=== PATIENT | male | born 1960 | race Caucasian/White ===

== ENCOUNTER 2017-05-27 08:43 | Emergency (ER) | payer SELFPAY ==
[2017-05-27 08:50] VITALS: BMI 29.5
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
--- NOTE | 2017-05-27 09:39 | CT ---
PROCEDURE: CT HEAD WITHOUT CONTRAST. HISTORY: r/o bleed COMPARISON: None available. TECHNIQUE: Axial computed tomography images were obtained through the head/brain without intravenous contrast. Radiation dose: Total exam DLP = 886 mGy-cm. This CT exam was performed using one or more of the following dose reduction techniques: Automated exposure control, adjustment of the mA and/or kV according to patient size, and/or use of iterative reconstruction technique. FINDINGS: HEMORRHAGE: No intracranial hemorrhage. BRAIN: No mass effect or edema. No atrophy or chronic microvascular ischemic changes. VENTRICLES: Unremarkable. No hydrocephalus. CALVARIUM: Unremarkable. PARANASAL SINUSES: Unremarkable as visualized. No significant inflammatory changes. MASTOID AIR CELLS: Unremarkable as visualized. No inflammatory changes. OTHER FINDINGS: None. IMPRESSION: Normal CT of the Head.
[2017-05-27 10:32] VITALS: BP 128/78; PULSE 78; RESP 19; TEMP 97.7; O2SAT 98
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
== END 2017-05-27 10:32 | disposition home or self-care (01) ==
LOC: H.ER 08:43
DX: S09.90XA Unspecified injury of head, initial encounter (principal); S63.91XA Sprain of unspecified part of right wrist and hand, initial encounter; V19.9XXA Pedal cyclist (driver) (passenger) injured in unspecified traffic accident, initial encounter; Y93.55 Activity, bike riding

== ENCOUNTER 2017-07-16 17:10 | Emergency (ER) | payer MEDICAID ==
[2017-07-16 17:10] VITALS: BMI 29.5
[2017-07-16] MEDS ORDERED: Oxycodone/Acetaminophen 5/325 mg Tab PO STA (20:33)
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
--- NOTE | 2017-07-16 21:27 | ED PDOC ---
- ECG O2 Sat by Pulse Oximetry: 98 Medical Decision Making Medical Decision Making: Case was signed out to keno writer/runner from [employer] [facility] pending CT reports CT cervical spine: FINDINGS: VERTEBRAE: No acute cervical spine fractures visualized. No significant vertebral subluxation seen on the sagittal reformatted images. Normal alignment of the facet joints. DISCS/SPINAL CANAL/ NEURAL FORAMINA: Moderate to severe degenerative disc disease, greatest at the C5-6 and C6-7 levels Degenerative changes at the atlantoaxial joint. SOFT TISSUES: No acute abnormality of the visualized soft tissues is seen. LARYNX: On image 49 of series 102, there is a small amount of debris/fluid in the supraglottic larynx posteriorly, which could represent some aspirated material. LUNG APICES: No pneumothorax seen. IMPRESSION: No acute cervical spine fractures identified. Small amount of debris/fluid in the supraglottic larynx, which could represent some aspirated material. Recommend clinical correlation. CT facial bones: FINDINGS: LIMITATIONS: Mild to moderate streak/motion artifact. BONES/JOINTS: Nondisplaced acute fracture involving the lateral wall of the left maxillary sinus. Nondisplaced acute fracture involving the anterior wall of the left maxillary sinus. This fracture extends to the left infraorbital rim. Acute fracture in of the left orbital floor posteriorly. This is best seen on image 52 of series 601, and it is mildly depressed. No additional acute fractures seen. SOFT TISSUES: Marked left periorbital and supraorbital soft tissue swelling. ORBITS: Small amount of air in the left orbit inferiorly. Intraorbital soft tissues appear grossly intact. No evidence of significant retrobulbar hematoma. SINUSES: Hemorrhage in the left maxillary sinus. There is also mucosal thickening involving the left frontal, left ethmoid , left sphenoid, and left maxillary sinuses. NASOPHARYNX: Nasal septal deviation to the left. IMPRESSION: Acute fractures of the anterior and lateral gandhi of the left maxillary sinus. The anterior wall fracture extends to the left infraorbital rim. Acute fracture of the left orbital floor posteriorly. CT head: FINDINGS: BRAIN: No significant acute abnormality identified. Diffuse , mild, age-related cortical atrophy and ventriculomegaly. No acute hemorrhage seen within the brain. No acute extra-axial fluid collections visualized. No evidence of significant mass effect within the brain. VENTRICLES: See above. BONES/JOINTS: Calvarium appears intact. SOFT TISSUES: Marked soft tissue swelling and a 3 x 1.5 cm hematoma in the left anterior frontal scalp. VASCULATURE: Atherosclerotic calcification. MASTOID AIR CELLS: Mastoid air cells appear clear. OTHER FINDINGS: Findings in the facial bones and paranasal sinuses are described in the separate dedicated facial bone CT report. IMPRESSION: No evidence of acute intracranial injury. Above results were d/w Dr. Rai. Call placed to [facility] and case was d/w [facility] surgeon entry level sales consultant, Dr. Curry. She states that patient is stable for discharge but will need close follow up. Resident states patient can come to [facility] clinic this coming at 1 pm. Patient given prescriptions for motrin, Percocet and Keflex. He was advised to take meds as directed, ice affected area and follow up this coming as scheduled with clinic at [facility]. Disposition Counseled Patient/Family Regarding: Studies Performed, Diagnosis, Need For Followup, Rx Given - Clinical Impression Clinical Impression: Head injury, Facial fracture - POA Present On Arrival: None - Disposition Referrals: [facility] [Provider Group] Disposition: Routine/Home Disposition Time: 22:40 Condition: STABLE Additional Instructions: TAKE RX MEDS DIRECTED. ICE AFFECTED AREA OFTEN POSSIBLE YOU HAVE AN APPOINTMENT WITH THE [facility]PART[facility] ON Monday AT 1PM. PLEASE GO TO [address] [place] [address], DEPARTMENT OF ORAL SURGERY, [place] [address] AT 1 PM ON MONDAY FOR THIS APPOINTMENT. CLINIC PHONE NUMBER IS [phone]. Prescriptions: Cephalexin [Keflex] 500 mg PO TID #21 capsule Ibuprofen [Motrin Tab] 800 mg PO Q8 PRN #20 tab PRN Reason: Pain, Moderate (4-7) oxyCODONE/Acetaminophen [Percocet 5/325 mg Tab] 1 ea PO Q6H PRN #10 tab PRN Reason: Pain, Severe (8-10) Instructions: Facial Fracture (ED), Head Injury (ED) Forms: [employer] (Somali)
[2017-07-16 22:20] VITALS: RESP 18; TEMP 98
[2017-07-16 23:37] VITALS: BP 145/97; PULSE 81; O2SAT 95
== END 2017-07-16 23:38 | disposition home or self-care (01) ==
LOC: H.ER 17:10
DX: S09.90XA Unspecified injury of head, initial encounter (principal); V19.9XXA Pedal cyclist (driver) (passenger) injured in unspecified traffic accident, initial encounter; Y93.55 Activity, bike riding; H05.89 Other disorders of orbit